=== PATIENT | female | born 1990 | race Two or more races ===

== ENCOUNTER 2023-08-02 23:07 | Emergency (ER) | payer BC ==
[2023-08-02 23:13] VITALS: BP 100/68; PULSE 115; RESP 20; TEMP 98.8; BMI 22.6
[2023-08-03] MEDS ORDERED: ACETAMINOPHEN INJECTION 100 ML IVPB ONE (00:33)
[2023-08-03 00:37] LABS: BASO % 0.3 % (0-2.0); HEMATOCRIT 39.4 % (32.4-45.2); LYMPH % 12.4 % (8-40); MCH 27.3 pg (25.7-33.7); MCHC 33.1 g/dl (32.0-36.0); MEAN CELL VOLUME 82.4 fl (80-96); MEAN PLT VOLUME 7.3 fl (7.5-11.1); MONO % 8.1 % (3.8-10.2); NEUT % 79.2 % (42.8-82.8); PLATELET COUNT 309 10^3/uL (134-434); RBC 4.79 M/mm3 (3.60-5.2); RDW 13.6 % (11.6-15.6); WHITE BLOOD COUNT 3.6 K/mm3 (4.0-10.0)
[2023-08-03] MEDS: SODIUM CHLORIDE 0.9% 500 ML INFUS.BAG IV ONE ×2 (00:39→01:37)
[2023-08-03] MEDS: ACETAMINOPHEN 1000 MG/100 ML BAG IVPB ONE (00:40)
[2023-08-03 01:04] LABS: POTASSIUM 3.5 mmol/L (3.5-5.1)
[2023-08-03 01:06] LABS: ALBUMIN 2.8 g/dl (3.4-5.0); CALCIUM 8.1 mg/dL (8.5-10.1)
[2023-08-03 01:07] LABS: BLOOD UREA NITROGEN 5.5 mg/dL (7-18); MAGNESIUM 1.7 mg/dL (1.8-2.4)
[2023-08-03 01:09] LABS: CREATININE 0.7 mg/dL (0.55-1.3)
[2023-08-03 01:11] LABS: BILIRUBIN,TOTAL 0.3 mg/dL (0.2-1); TOT PROT 6.3 g/dl (6.4-8.2)
[2023-08-03] MEDS ORDERED: KETOROLAC TROMETHAMINE 15 MG/ML VIAL ONE (01:17)
[2023-08-03] MEDS: KETOROLAC TROMETHAMINE 15 MG/ML VIAL IVPUSH ONE (01:23)
[2023-08-03] MEDS ORDERED: ONDANSETRON 4 MG/2 ML VIAL ONE (01:29)
[2023-08-03] MEDS: morphine CARPU-JECT 2 MG/1 ML DISP.SYRIN IVPUSH ONE (01:35)
[2023-08-03] MEDS: ONDANSETRON 4 MG/2 ML VIAL IVPUSH ONE (01:36)
[2023-08-03] MEDS ORDERED: MAGNESIUM SULFATE IN WATER 2 GM/50 ML IVPB IVPB ONE (01:43)
[2023-08-03] MEDS: MAGNESIUM SULF 50% (8.12 MEQ/2 ML-1 GM VIAL) IVPB ONE (01:47)
== END 2023-08-03 03:18 | disposition home or self-care (01) ==
LOC: JER 23:07
PROC: 3E033GC Introduction of Other Therapeutic Substance into Peripheral Vein, Percutaneous Approach (ICD-10-PCS; principal; 2023-08-03)
PROC: 3E033GC Introduction of Other Therapeutic Substance into Peripheral Vein, Percutaneous Approach (ICD-10-PCS; 2023-08-03)
PROC: 3E033GC Introduction of Other Therapeutic Substance into Peripheral Vein, Percutaneous Approach (ICD-10-PCS; 2023-08-03)
PROC: 3E033NZ Introduction of Analgesics, Hypnotics, Sedatives into Peripheral Vein, Percutaneous Approach (ICD-10-PCS; 2023-08-03)
DX: R50.81 Fever presenting with conditions classified elsewhere (principal); R05.9 Cough, unspecified; R52 Pain, unspecified; R51.9 Headache, unspecified; R53.83 Other fatigue; Z20.822 Contact with and (suspected) exposure to COVID-19
CPT/HCPCS: 0241U-QW; 36415; 80053; 83605; 83690; 83735; 84703; 85025; 86790; 87651; 87798; 99284-25; J0131

== ENCOUNTER 2023-10-09 21:12 | Emergency (ER) | payer BC ==
[2023-10-09 21:17] VITALS: BMI 22.2
[2023-10-09] MEDS ORDERED: ONDANSETRON 4 MG/2 ML VIAL IVPB ONE (21:44)
[2023-10-09] MEDS ORDERED: ONDANSETRON 4 MG/2 ML VIAL ONE (21:52)
[2023-10-09] MEDS ORDERED: ACETAMINOPHEN INJECTION 100 ML IVPB ONE (21:52)
[2023-10-09] MEDS: SODIUM CHLORIDE 1,000 ML IV STA (22:21)
[2023-10-09] MEDS: ONDANSETRON 4 MG/2 ML VIAL IVPB ONE (22:23)
[2023-10-09 22:27] LABS: MCH 26.8 pg (25.7-33.7); MCHC 32.6 g/dl (32.0-36.0); MEAN CELL VOLUME 82.3 fl (80-96); MEAN PLT VOLUME 7.4 fl (7.5-11.1); PLATELET COUNT 413 10^3/uL (134-434); RBC 4.86 M/mm3 (3.60-5.2); RDW 14.6 % (11.6-15.6); WHITE BLOOD COUNT 10.5 K/mm3 (4.0-10.0)
[2023-10-09 22:40] LABS: POTASSIUM 4.5 mmol/L (3.5-5.1)
[2023-10-09 22:42] LABS: ALBUMIN 3.2 g/dl (3.4-5.0); CALCIUM 8.7 mg/dL (8.5-10.1)
[2023-10-09 22:44] LABS: ACTIVATED PTT 29.5 SECONDS (25.2-36.5); BLOOD UREA NITROGEN 9.1 mg/dL (7-18)
[2023-10-09] MEDS ORDERED: morphine SULFATE 4 MG/ML VIAL ONE (22:44)
[2023-10-09 22:45] LABS: CREATININE 0.6 mg/dL (0.55-1.3)
[2023-10-09 22:48] LABS: BILIRUBIN,TOTAL 0.2 mg/dL (0.2-1); TOT PROT 6.6 g/dl (6.4-8.2)
[2023-10-09] MEDS: morphine SULFATE 4 MG/ML VIAL IVPUSH ONE (22:49)
[2023-10-09 22:50] LABS: INR 0.92 (0.83-1.09); PROTHROMBIN TIME (PATIENT) 10.4 SEC (9.7-13.0)
[2023-10-09] MEDS: ACETAMINOPHEN 1000 MG/100 ML BAG IVPB ONE (23:35)
[2023-10-10] MEDS ORDERED: morphine SULFATE 4 MG/ML VIAL ONE (02:01)
[2023-10-10] MEDS: morphine CARPU-JECT 4 MG/1 ML DISP.SYRIN IVPUSH ONE (02:06)
[2023-10-10 10:55] VITALS: BP 93/64; PULSE 79; RESP 18; TEMP 98.4
== END 2023-10-10 10:55 | disposition home or self-care (01) ==
LOC: JER 21:12
PROC: 3E033NZ Introduction of Analgesics, Hypnotics, Sedatives into Peripheral Vein, Percutaneous Approach (ICD-10-PCS; principal; 2023-10-09)
PROC: 3E033GC Introduction of Other Therapeutic Substance into Peripheral Vein, Percutaneous Approach (ICD-10-PCS; 2023-10-09)
PROC: 3E0337Z Introduction of Electrolytic and Water Balance Substance into Peripheral Vein, Percutaneous Approach (ICD-10-PCS; 2023-10-09)
DX: R10.84 Generalized abdominal pain (principal); R11.2 Nausea with vomiting, unspecified
CPT/HCPCS: 36415; 74177-TC; 80053; 83605; 83690; 85027; 85610; 85730; 99285-25